=== PATIENT | female | born 1975 | race Two or more races ===

== ENCOUNTER 2023-03-28 10:35 | Emergency (ER) | payer OTHER ==
[~2023-03-28] VITALS: Ht 162.6 cm; Wt 81.4 kg
[2023-03-28 11:10] VITALS: BP 103/51; PULSE 90; RESP 18; O2SAT 99
[2023-03-28 11:33] LABS: Basophils # (auto) 0.2 10 ^3/uL (0-0.2); Basophils % (auto) 1.2 % (0.0-2.0); Eosinophils # (auto) 0.6 10 ^3/uL (0-0.8); Eosinophils % (auto) 4.5 % (0.0-7.0); Hematocrit 42.9 % (36.0-46.0); Hemoglobin 14.1 g/dL (12.2-16.2); Lymphocytes % (auto) 22.4 % (10.0-50.0); Mean Corpuscular Hemoglobin 29.8 pg (28.0-32.0); Mean Corpuscular Hgb Conc. 32.9 g/dL (32.0-36.0); Mean Corpuscular Volume 90.7 fL (80.0-100.0); Monocytes % (auto) 7.2 % (0.0-12.0); Neutrophils # (auto) 8.8 10 ^3/uL (1.6-8.6); Neutrophils % (auto) 64.7 % (37.0-80.0); Red Blood Cells 4.72 10^6/uL (4.0-5.20); Red Cell Distribution Width 14.3 % (11.8-14.3); White Blood Cell 13.6 10^3/uL (4.4-10.8)
[2023-03-28 11:52] LABS: Urine Bacteria NONE SEEN /hpf (None Seen); Urine Blood 3+ /uL (Negative); Urine Clarity HAZY (Clear); Urine Color Red (Yellow); Urine Protein, UAD 1+ (Negative); Urine Specific Gravity 1.019 (1.001-1.035); Urine Urobilinogen Normal (Negative); Urine WBC 256 /hpf (0 - 5); Urine WBC Clumps PRESENT /hpf (None Seen)
[2023-03-28 12:08] LABS: Chloride 108 mmol/L (98-107); Sodium 139 mmol/L (136-145)
[2023-03-28 12:09] LABS: Anion Gap 7 (5-15); Carbon Dioxide 24 mmol/L (20-30)
[2023-03-28 12:10] LABS: Calcium 9.7 mg/dL (8.5-10.1)
[2023-03-28 12:11] LABS: INR 0.93 (0.9-1.15); Prothrombin Time 9.8 sec (9.3-11.8)
[2023-03-28 12:14] LABS: Glucose 99 mg/dL (74-106)
[2023-03-28 12:15] LABS: BUN/Creatinine Ratio 12.8 (10.0-20.0); Blood Urea Nitrogen 10 mg/dL (9-23)
[2023-03-28] MEDS ORDERED: cefTRIAXone SOD 1,000 MG VL IM ONE (12:15)
[2023-03-28] MEDS ORDERED: IBUPROFEN 800 MG TAB PO ONE (12:15)
[2023-03-28 13:20] VITALS: TEMP 98
[2023-03-28] MEDS ORDERED: CIPR-173 PO (13:24)
[2023-03-28] MEDS ORDERED: NAPR-746 PO (13:24)
== END 2023-03-28 13:35 | disposition home or self-care (01) ==
LOC: ER 10:35
DX: N83.202 Unspecified ovarian cyst, left side (principal); D25.9 Leiomyoma of uterus, unspecified; N39.0 Urinary tract infection, site not specified; N92.0 Excessive and frequent menstruation with regular cycle; Z32.02 Encounter for pregnancy test, result negative
CPT/HCPCS: 36415; 76856; 80048; 81001; 81025; 85025; 85610; 96372; 99285; J0696